=== PATIENT | female | born 1990 | race Caucasian/White ===

== ENCOUNTER 2017-12-16 07:50 | Outpatient (CLI) | payer BC ==
[~2017-12-16] VITALS: Ht 165.1 cm; Wt 94.5 kg
[2017-12-16 08:10] VITALS: BP 112/63
[2017-12-16 08:34] LABS: MICROSCOPIC AUTO
== END 2017-12-16 09:45 | disposition home or self-care (01) ==
LOC: LDOP 07:50
PROVIDERS: ATTEND Obstetrics & Gynecology
DX: O26.893 Other specified pregnancy related conditions, third trimester (principal); R10.9 Unspecified abdominal pain; Z3A.00 Weeks of gestation of pregnancy not specified
CPT/HCPCS: 59025; 81001; 87086; 99211; G0463

== ENCOUNTER 2017-12-31 17:19 | Inpatient (IN) | payer BC ==
[~2017-12-31] VITALS: Ht 165.1 cm; Wt 97.3 kg
[2017-12-31 17:29] VITALS: BP 116/68
[2017-12-31] MEDS ORDERED: OXYTOCIN 30U/ 0.9% NaCL 500ML 500 ML ONE (18:18)
[2017-12-31] MEDS ORDERED: MISOPROSTOL 200 MCG TABLET ONE ×2 (18:18)
[2017-12-31] MEDS: OXYTOCIN 30U/ 0.9% NaCL 500ML 500 ML IV SCH ×2 (18:21→22:05)
[2017-12-31] MEDS ORDERED: SODIUM CITRATE/CITRIC ACID 30 ML UDC PO ONE (18:30)
[2017-12-31] MEDS ORDERED: LACTATED RINGERS 1,000 ML IVBOLUS ONE (18:30)
[2017-12-31] MEDS: LACTATED RINGERS 1,000 ML IV SCH ×4 (18:30→22:05)
[2017-12-31] MEDS ORDERED: METOCLOPRAMIDE 5 MG/ML, 2ML IV ONE (18:30)
[2017-12-31] MEDS ORDERED: SODIUM CITRATE/CITRIC ACID 30 ML UDC ONE (18:44)
[2017-12-31] MEDS ORDERED: METOCLOPRAMIDE 5 MG/ML, 2ML ONE (18:44)
[2017-12-31] MEDS ORDERED: NEWBORN KIT ONE (18:44)
[2017-12-31] MEDS ORDERED: BUPIVACAINE/PF 0.5% ONE (18:47)
[2017-12-31] MEDS ORDERED: FENTANYL PF 100 MCG/2ML ONE (18:49)
[2017-12-31] MEDS ORDERED: OXYTOCIN 10 UNITS/ML, 1ML ONE (18:49)
[2017-12-31] MEDS ORDERED: EPHEDRINE 50 MG/ML, 1ML ONE (18:49)
[2017-12-31] MEDS ORDERED: CEFAZOLIN 1,000 MG ONE (18:49)
[2017-12-31] MEDS ORDERED: WATER-INJECTION,STERILE 10 ML IV ONE (18:49)
[2017-12-31] MEDS ORDERED: PHENYLEPHRINE 10 MG/ML ONE (18:49)
[2017-12-31 18:54] LABS: BASOPHILS # (AUTO) 0.04 x10^3/uL (0-0.1); BASOPHILS % (AUTO) 0 % (0-1); EOSINOPHILS # (AUTO) 0.07 x10^3/uL (0-0.4); EOSINOPHILS % (AUTO) 1 % (1-7); LYMPHOCYTES # (AUTO) 1.81 x10^3/uL (1-3.4); LYMPHOCYTES % (AUTO) 15 % (22-44); MD NO; MEAN CORPUSCULAR HEMOGLOBIN 29.9 pg (27.0-34.8); MEAN CORPUSCULAR HGB CONC 33.8 g/dL (32.4-35.8); MEAN CORPUSCULAR VOLUME 88.5 fL (80-100); MONOCYTES # (AUTO) 0.59 x10^3/uL (0.2-0.8); MONOCYTES % (AUTO) 5 % (2-9); NEUTROPHILS # (AUTO) 9.26 x10^3/uL (1.8-6.8); NEUTROPHILS % (AUTO) 79 % (42-75); PLATELET COUNT 227 x10^3/uL (130-400); RED CELL DISTRIBUTION WIDTH 13.8 % (9.6-15.2)
[2017-12-31] MEDS ORDERED: PENICILLIN GK 5,000,000 UNITS in SODIUM CHLORIDE 0.9% 100 ML IVPB ONE (19:00)
[2017-12-31] MEDS ORDERED: PREN1TAB60 PO (21:25)
[2017-12-31] MEDS ORDERED: GLYCOPYRROLATE 0.4 MG/2 ML, 2ML ONE (21:36)
[2017-12-31] MEDS ORDERED: EPINEPHRINE 1 MG/ML, 1ML ONE (21:36)
[2017-12-31] MEDS ORDERED: MISOPROSTOL 200 MCG TABLET PO PRN (22:30)
[2017-12-31] MEDS ORDERED: morphine SULFATE 10 MG/ML, 1ML IVPush PRN ×2 (22:30)
[2017-12-31] MEDS ORDERED: ONDANSETRON 2MG/ML, 2ML IV PRN (22:30)
[2017-12-31] MEDS ORDERED: CALCIUM CARBONATE 500 MG TAB.CHEW PO PRN (22:30)
[2018-01-01] VITALS (7 sets, daily range): BP systolic 88–102; BP diastolic 44–60
[2018-01-01] MEDS: KETOROLAC 30 MG/1 ML IV SCH ×4 (00:06→18:10)
[2018-01-01] MEDS: OXYcodone/APAP 5/325MG TABLET PO PRN (01:23)
[2018-01-01] MEDS: LACTATED RINGERS 1,000 ML IV SCH ×4 (02:21→08:05)
[2018-01-01] MEDS: OXYTOCIN 30U/ 0.9% NaCL 500ML 500 ML IV SCH ×2 (04:21→08:05)
[2018-01-01] MEDS: OXYcodone IR 5MG TABLET PO PRN ×5 (04:29→20:42)
[2018-01-01 04:52] LABS: BASOPHILS # (AUTO) 0.03 x10^3/uL (0-0.1); BASOPHILS % (AUTO) 0 % (0-1); EOSINOPHILS # (AUTO) 0.02 x10^3/uL (0-0.4); EOSINOPHILS % (AUTO) 0 % (1-7); LYMPHOCYTES # (AUTO) 1.46 x10^3/uL (1-3.4); LYMPHOCYTES % (AUTO) 12 % (22-44); MD NO; MEAN CORPUSCULAR HEMOGLOBIN 29.3 pg (27.0-34.8); MEAN CORPUSCULAR HGB CONC 33.1 g/dL (32.4-35.8); MEAN CORPUSCULAR VOLUME 88.5 fL (80-100); MEAN PLATELET VOLUME 8.9 fL (7.4-10.4); MONOCYTES # (AUTO) 0.63 x10^3/uL (0.2-0.8); MONOCYTES % (AUTO) 5 % (2-9); NEUTROPHILS # (AUTO) 10.17 x10^3/uL (1.8-6.8); NEUTROPHILS % (AUTO) 83 % (42-75); PLATELET COUNT 187 x10^3/uL (130-400); RED BLOOD COUNT 3.83 x10^6/uL (3.82-5.3); RED CELL DISTRIBUTION WIDTH 13.9 % (9.6-15.2)
[2018-01-01] MEDS: PRENATAL VIT/IRON/FA 1 EACH TABLET PO SCH (08:31)
[2018-01-01] MEDS: DOCUSATE 100 MG CAPSULE PO PRN ×2 (08:31→20:42)
[2018-01-01] MEDS: SIMETHICONE 80 MG CHEW TAB PO PRN ×2 (17:15→20:42)
[2018-01-02] MEDS: KETOROLAC 30 MG/1 ML IV SCH ×4 (00:02→17:55)
[2018-01-02] MEDS: OXYcodone IR 5MG TABLET PO PRN ×2 (01:02→04:53)
[2018-01-02] MEDS ORDERED: BISACODYL 10 MG SUPP PR PRN (06:00)
[2018-01-02] MEDS: SIMETHICONE 80 MG CHEW TAB PO PRN (06:02)
[2018-01-02] MEDS ORDERED: METOCLOPRAMIDE 5 MG/ML, 2ML IVPush PRN (06:30)
[2018-01-02] MEDS ORDERED: ONDANSETRON 2MG/ML, 2ML IVPush PRN (06:30)
[2018-01-02 07:20] VITALS: BP 103/62
[2018-01-02] MEDS: DOCUSATE 100 MG CAPSULE PO PRN ×2 (08:01→19:51)
[2018-01-02] MEDS: PRENATAL VIT/IRON/FA 1 EACH TABLET PO SCH (08:01)
[2018-01-02] MEDS: OXYcodone/APAP 5/325MG TABLET PO PRN ×5 (10:35→23:59)
[2018-01-02] MEDS ORDERED: OXYcodone IR 5MG TABLET ONE (15:15)
[2018-01-02 19:40] VITALS: BP 93/53
[2018-01-02] MEDS: IBUPROFEN 800 MG TABLET PO PRN (23:58)
[2018-01-03] MEDS: OXYcodone/APAP 5/325MG TABLET PO PRN ×2 (05:06→09:20)
[2018-01-03 07:40] VITALS: BP 109/73
[2018-01-03] MEDS: DOCUSATE 100 MG CAPSULE PO PRN (07:44)
[2018-01-03] MEDS: PRENATAL VIT/IRON/FA 1 EACH TABLET PO SCH (07:44)
[2018-01-03] MEDS: SIMETHICONE 80 MG CHEW TAB PO PRN (07:44)
[2018-01-03] MEDS: IBUPROFEN 800 MG TABLET PO PRN (07:44)
[2018-01-03] MEDS ORDERED: OXYC-302 PO (10:31)
[2018-01-03] MEDS ORDERED: IBUP-1222 PO (10:31)
[2018-01-03] MEDS ORDERED: DOCU-131 PO (11:16)
== END 2018-01-03 12:45 | disposition home or self-care (01) | DRG 766 ==
LOC: LDOP 17:19 → LDIP 18:21 → 2NW 23:35
PROVIDERS: ADMIT Obstetrics & Gynecology; ATTEND Obstetrics & Gynecology
PROC: 10D00Z1 Extraction of Products of Conception, Low, Open Approach (ICD-10-PCS; principal; 2017-12-31)
DX: O34.211 Maternal care for low transverse scar from previous cesarean delivery (principal); O99.824 Streptococcus B carrier state complicating childbirth; Z37.0 Single live birth; Z88.2 Allergy status to sulfonamides; Z91.013 Allergy to seafood
CPT/HCPCS: 36415; 85025; 86850; 86900; 87086; 89060; J0171; J0690; J1885; J2540; J3010; J3490; J2370; J2590; J2765; J7120; Q0114